=== PATIENT | male | born 1980 | race Caucasian/White ===

== ENCOUNTER → 2020-11-16 | Emergency (ER) | payer OTHER ==
[~2020-11-16] VITALS: Ht 180.3 cm; Wt 88.5 kg
[2020-11-16 04:00] VITALS: BP 130/77
== END | disposition home or self-care (01) ==
LOC: ER 01:47
DX: M25.531 Pain in right wrist (principal); Y08.89XA Assault by other specified means, initial encounter; Y93.89 Activity, other specified; Y92.89 Other specified places as the place of occurrence of the external cause; Y99.8 Other external cause status
CPT/HCPCS: 73110; 73130-TC